=== PATIENT | male | born 1965 | race Caucasian/White ===

== ENCOUNTER 2017-08-24 17:14 | Emergency (ER) | payer SELFPAY | END 2017-08-24 19:00 | disposition left against medical advice (07) | LOC: D.ER 17:14 | DX: S89.92XA Unspecified injury of left lower leg, initial encounter (principal); X58.XXXA Exposure to other specified factors, initial encounter; Y93.89 Activity, other specified; Y92.89 Other specified places as the place of occurrence of the external cause ==

== ENCOUNTER 2018-03-09 15:59 | Emergency (ER) | payer SELFPAY ==
[~2018-03-09] VITALS: Ht 165.1 cm; Wt 81.8 kg
[2018-03-09 16:24] VITALS: Ht 165.1 cm; Wt 81.8 kg
[2018-03-09] MEDS ORDERED: GLUCOPHAGE500 MG PO (16:26)
[2018-03-09] MEDS ORDERED: BP MED (16:27)
[2018-03-09] MEDS ORDERED: GLUCOTROL ER2.5 MG PO (16:27)
[2018-03-09] MEDS ORDERED: VOLTAREN75 MG PO (18:52)
[2018-03-09 19:12] VITALS: BP 138/77
== END 2018-03-09 19:12 | disposition home or self-care (01) ==
LOC: D.ER 15:59
DX: S89.92XA Unspecified injury of left lower leg, initial encounter (principal); W17.89XA Other fall from one level to another, initial encounter; Y93.89 Activity, other specified; Y92.019 Unspecified place in single-family (private) house as the place of occurrence of the external cause; E11.9 Type 2 diabetes mellitus without complications; I10 Essential (primary) hypertension; F17.200 Nicotine dependence, unspecified, uncomplicated